=== PATIENT | male | born 1935 | race Caucasian/White ===

== ENCOUNTER 2016-12-26 13:36 | Emergency (ER) | payer MEDICARE, OTHER ==
--- NOTE | 2016-12-26 13:43 | Emergency Department Record ---
History of Present Illness - General Chief Complaint: Syncope Stated Complaint: DIZZY AND SYNCOPE Time Seen by Provider: 12/26/16 13:43 Source: Patient, Family - History of Present Illness Initial Comments: The patient states he had bent over and suddenly found himself on his knees on the floor. He denies any LOC, cp, daly, nausea, sweating, palpitations or other symptoms prior to falling down. His family heard the fall from the next room and found him on his knees. He has a long smoking history but quit in l9 due to a bad pneumonia. He also has htn, and has been having dizzy spells when he bends over for the past several months since July 2016. He denies CVA, NE, PE, DVT. He has COPD and pneumonia in the past. He also had a SBO in August in [place]. Complaint: Almost passed out, Collapsed - Related Data Home Medications Medication Instructions Recorded Confirmed Last Taken Aspirin 81 mg PO DAILY 12/26/16 12/26/16 1 Day Ago ~12/25/16 Lisinopril [Zestril] 5 mg PO DAILY 12/26/16 12/26/16 1 Day Ago ~12/25/16 Multivitamin [Multiple Vitamins] 1 each PO DAILY 12/26/16 12/26/16 1 Day Ago ~12/25/16 Previous Rx's Medication Instructions Recorded Azithromycin [Zithromax] 500 mg PO DAILY #10 tablet 12/26/16 Meclizine HCl [Antivert] 25 mg PO Q8H #30 tablet 12/26/16 Allergies Allergy/AdvReac Type Severity Reaction Status Date / Time No Known Drug Allergies Allergy Verified 12/26/16 13:48 Review of Systems Reviewed: No additional complaints except as noted below Constitutional: Reports: As per HPI. Denies: Chills, Fever, Malaise, Night sweats, Weakness, Weight change Eyes: Reports: As per HPI. Denies: Eye discharge, Eye pain, Photophobia, Vision change ENT: Reports: As per HPI. Denies: Congestion, Dental pain, Ear pain, Epistaxis , Hearing loss, Throat pain Respiratory: Reports: As per HPI. Denies: Cough, Dyspnea, Hemoptysis, Stridor, Wheezes Cardiovascular: Reports: As per HPI. Denies: Arrhythmia, Chest pain, Dyspnea on exertion, Edema, Murmurs, Orthopnea, Palpitations, Paroxysmal nocturnal dyspnea, Rheumatic Fever, Syncope Endocrine: Reports: As per HPI. Denies: Fatigue, Heat or cold intolerance, Polydipsia, Polyuria Gastrointestinal: Reports: As per HPI. Denies: Abdominal pain, Constipation, Diarrhea, Hematemesis, Hematochezia, Melena, Nausea, Vomiting Genitourinary: Reports: As per HPI. Denies: Dysuria, Frequency, Hematuria, Incontinence, Retention, Testicular pain, Testicular mass, Urgency Musculoskeletal: Reports: As per HPI. Denies: Arthralgia, Back pain, Gout, Joint swelling, Myalgia, Neck pain Skin: Reports: As per HPI. Denies: Bruising, Change in color, Change in hair/ nails, Lesions, Pruritus, Rash Neurological: Reports: As per HPI. Denies: Abnormal gait, Confusion, Headache, Numbness, Paresthesias, Seizure, Tingling, Tremors, Vertigo, Weakness Psychiatric: Reports: As per HPI. Denies: Anxiety, Auditory hallucinations, Depression, Homicidal thoughts, Suicidal thoughts, Visual hallucinations Hematological/Lymphatic: Reports: As per HPI. Denies: Anemia, Blood Clots, Easy bleeding, Easy bruising, Swollen glands Past Medical History - SOCIAL HISTORY Smoking Status: Former smoker - RESPIRATORY Hx Respiratory Disorders: Yes Hx Pneumonia: Yes - CARDIOVASCULAR Hx Hypertension: Yes - NEURO Hx Dizziness: Yes Physical Exam - General General Appearance: Alert, Oriented x3, Cooperative, No acute distress, Other ( cachectic ) - Head Head exam: Normal inspection - Eye Eye exam: Normal appearance, PERRL Pupils: Normal accommodation - ENT ENT exam: Normal exam, Mucous membranes moist, Normal external ear exam, Normal orophraynx, TM's normal bilaterally Ear exam: Normal external inspection. negative: External canal tenderness Nasal Exam: Normal inspection. negative: Discharge, Sinus tenderness Mouth exam: Normal external inspection, Tongue normal Teeth exam: Normal inspection. negative: Dental caries Throat exam: Normal inspection. negative: Tonsillar erythema, Tonsillar exudate - Neck Neck exam: Normal inspection, Full ROM. negative: Lymphadenopathy, Meningismus , Tenderness - Respiratory Respiratory exam: Decreased breath sounds, Prolonged expiratory. negative: Chest wall tenderness, Rales, Respiratory distress, Wheezes - Cardiovascular Cardiovascular Exam: Regular rate, Normal rhythm, Normal heart sounds - GI/Abdominal GI/Abdominal exam: Soft, Normal bowel sounds. negative: Tenderness - Rectal Rectal exam: Deferred - exam: Deferred - Extremities Extremities exam: Normal inspection, Full ROM, Normal capillary refill. negative: Calf tenderness, Pedal edema, Tenderness - Back Back exam: Reports: Normal inspection, Full ROM. Denies: Muscle spasm, Rash noted, Tenderness - Neurological Neurological exam: Alert, CN II-XII intact, Normal gait, Oriented X3, Reflexes normal. negative: Motor sensory deficit - Psychiatric Psychiatric exam: Normal affect, Normal mood - Skin Skin exam: Dry, Intact, Normal color, Warm Course - Reevaluation(s) Reevaluation #1: The patient confirms that he just gets his symptoms from bending over or moving his head. He had some sinus problems in the past for which he took flonase and claritin. He agrees with the plan to treat him for sinusitis for 3 weeks and then he will follow up with his PCP to get carotid dopplers through his PCP in [place]. 12/26/16 15:19 Medical Decision Making - Management Options MDM Management: No Additional Work-up Planned (PCP dopplers in home state [facility]) - Data Complexity MDM Data: Labs Ordered and/or Reviewed, X-Ray Ordered and/or Reviewed (CXR two view: COPD changes, no acute abnormality. Noncontrast Head CT: No acute abnormality. Probably sterile fluid in bilateral mastoid air cells; chronic left left maxillary sinus. Per radiologist.), EKG Ordered and/or Reviewed - Lab Data Result diagrams: 12/26/16 13:50 12/26/16 13:50 - EKG Data -: EKG Interpreted by Me (NSR, peaked T waves V leads 1-5, suspicious ST 1mm anterior lead elevation ) Disposition Disposition: Discharge Clinical Impression: Dizziness Sinusitis, chronic Qualifiers: Sinusitis location: maxillary Qualified Code(s): J32.0 - Chronic maxillary sinusitis Disposition: Home, Self-Care Condition: (1) Good Instructions: Sinusitis (ED), Vertigo (ED) Additional Instructions: Take antibiotics as instructed for 3 weeks. Take antivert as instructed to help with dizziness. Follow up with PCP 01-07-17 in [place] as previously arranged for recheck and for out patient carotid doppler studies. Prescriptions: Azithromycin [Zithromax] 500 mg PO DAILY #10 tablet Meclizine HCl [Antivert] 25 mg PO Q8H #30 tablet Forms: Patient Portal Access
[2016-12-26 13:56] LABS: BASO % 0.5 % (0-6); EOS % 2.1 % (0-6); GRAN % 58.1 % (47-80); HEMOGLOBIN 13.7 gm/dl (14.0-18.0); LYMPH % 30.6 % (16-45); MEAN CELL VOLUME 91.1 fl (81-97); MEAN CORPUSCULAR HEMOGLOBIN 30.4 pg (27-33); MEAN CORPUSCULAR HGB CONC 33.4 g/dl (32-36); MEAN PLATELET VOLUME 8.8 fl (7.4-10.4); MONO % 8.7 % (0-9); PLATELET COUNT 208 K/uL (130-400); WHITE BLOOD COUNT W/O DIFF 7.6 K/uL (4.2-12.2)
[2016-12-26 14:06] LABS: LACTIC ACID 1.2 mmol/L (0.7-2.1)
[2016-12-26 14:09] LABS: D-DIMER < 0.19 mg/L FEU (0-0.59); INR 1.06
[2016-12-26 14:19] LABS: BLOOD UREA NITROGEN 13 mg/dL (9-20); CREATININE 0.8 mg/dL (0.66-1.25); EST GLOMERULAR FILTRATION RATE > 60 ml/min; GLUCOSE,RANDOM 113 mg/dL (70-110)
[2016-12-26 14:20] LABS: ALBUMIN 3.9 gm/dL (3.5-5.0); ALKALINE PHOSPHATASE 80 U/L (38-126); ALT/SGPT 25 U/L (21-72); AST/SGOT 21 U/L (17-59); CKMB 0.9 ug/L (0-6); TOTAL PROTEIN 6.8 gm/dL (6.3-8.2); TROPONIN I < 0.012 ng/mL (0.00-0.034)
[2016-12-26 14:58] LABS: URINE APPEARANCE CLEAR; URINE BILIRUBIN NEGATIVE (NEGATIVE); URINE BLOOD NEGATIVE (NEGATIVE); URINE COLOR YELLOW; URINE GLUCOSE (UA) NEGATIVE (NEGATIVE); URINE KETONE NEGATIVE (NEGATIVE); URINE LEUKOCYTE ESTERASE NEGATIVE (NEGATIVE); URINE NITRITE NEGATIVE (NEGATIVE); URINE PROTEIN NEGATIVE (NEGATIVE); URINE UROBILINOGEN 0.2 E.U./dL (0.20 - 1.00)
--- NOTE | 2016-12-29 13:18 | RADIOLOGY REPORT ---
EXAM: CHEST, TWO VIEWS HISTORY: ACUTE SYNCOPE WHILE BENDING OVER. TECHNIQUE: Two views of the chest were obtained. Comparison: None. Encounter: Initial. FINDINGS: Mild biapical pleural thickening consistent with scarring. Upper lung lucency consistent with emphysema. No consolidative change. The cardiac silhouette and diaphragm are unremarkable. Osteopenia. No displaced rib fractures.. IMPRESSION: EMPHYSEMA WITH BIAPICAL SCARRING. NO ACUTE INTRATHORACIC PROCESS. JOB NUMBER: [id number] MTDD
--- NOTE | 2016-12-29 13:52 | CT SCAN REPORT ---
EXAM: HEAD CT WITHOUT CONTRAST HISTORY: SYNCOPE, DID NOT HIT HEAD. TECHNIQUE: Contiguous axial images from the cerebral convexities to the foramen magnum were obtained without contrast. Comparison: None. Hand dominance: Right. Encounter: Initial. FINDINGS: The brain volume is normal. No acute intracranial hemorrhage, mass effect, or midline shift. No CT evidence of acute infarct. The ventricles, basal cisterns, and sulci are within normal limits. Fluid in the mastoid air cells, left greater than right. Extensive mucosal thickening left maxillary sinus. Bilateral lens implants. IMPRESSION: 1. NO ACUTE INTRACRANIAL PROCESS. 2. CHRONIC LEFT MAXILLARY SINUSITIS. 3. PROBABLE TRAPPED STERILE FLUID IN THE MASTOID AIR CELLS. JOB NUMBER: [id number] MTDD
== END 2016-12-26 15:49 | disposition home or self-care (01) ==
LOC: ER 13:36
DX: R42 Dizziness and giddiness (principal); J32.0 Chronic maxillary sinusitis; J44.9 Chronic obstructive pulmonary disease, unspecified
CPT/HCPCS: 70450; 71020; 80048; 80076; 81003; 82553; 83605; 84484; 85025; 85379; 85610; 85730; 93005; 93010; 99283

== ENCOUNTER 2018-02-21 09:09 | Emergency (ER) | payer MEDICARE, OTHER ==
--- NOTE | 2018-02-21 09:50 | Emergency Department Record ---
History of Present Illness - General Chief Complaint: Syncope Stated Complaint: LOW BLOOD PRESSURE Time Seen by Provider: 02/21/18 09:31 Source: Patient, RN notes reviewed Mode of Arrival: Ambulatory - History of Present Illness Initial Comments: syncope three times and he was talking immediately. History of parkinson and he has been having problems with falling for about one year . Patient has a poor appetite and they are giving him food suplements one can a day and are encouraging him to drink fluids. is his historian. daughter also in the room. Some short term memory issues. patient is taking carbi/levo four times a day Onset/Timin -: Days(s) Prodromal Symptoms: Lightheaded Injuries Sustained Associated with Event: None Current Symptoms: None Treatments Prior to Arrival: None - [place] Coma Scale Eye Response: (4) Open spontaneously Motor Response: (6) Obeys commands Verbal Response: (5) Oriented Kelly Total: 15 - Related Data Home Medications Medication Instructions Recorded Confirmed Last Taken Carbidopa/Levodopa [Carbidopa-Levo 1 each PO Q6HR 02/21/18 02/21/18 02/21/18 10-100 mg Odt] Allergies Allergy/AdvReac Type Severity Reaction Status Date / Time No Known Drug Allergies Allergy Verified 02/21/18 09:14 Travel Screening - Travel/Exposure Within Last 30 Days Have you traveled within the last 30 days?: No Review of Systems Reviewed: No additional complaints except as noted below Constitutional: Reports: As per HPI. Denies: Chills, Fever, Malaise, Night sweats, Weakness, Weight change Eyes: Reports: As per HPI. Denies: Eye discharge, Eye pain, Photophobia, Vision change ENT: Reports: As per HPI. Denies: Congestion, Dental pain, Ear pain, Epistaxis , Hearing loss, Throat pain Respiratory: Reports: As per HPI. Denies: Cough, Dyspnea, Hemoptysis, Stridor, Wheezes Cardiovascular: Reports: As per HPI. Denies: Arrhythmia, Chest pain, Dyspnea on exertion, Edema, Murmurs, Orthopnea, Palpitations, Paroxysmal nocturnal dyspnea, Rheumatic Fever, Syncope Endocrine: Reports: As per HPI. Denies: Fatigue, Heat or cold intolerance, Polydipsia, Polyuria Gastrointestinal: Reports: As per HPI. Denies: Abdominal pain, Constipation, Diarrhea, Hematemesis, Hematochezia, Melena, Nausea, Vomiting Genitourinary: Reports: As per HPI. Denies: Dysuria, Frequency, Hematuria, Incontinence, Retention, Testicular pain, Testicular mass, Urgency Musculoskeletal: Reports: As per HPI. Denies: Arthralgia, Back pain, Gout, Joint swelling, Myalgia, Neck pain Skin: Reports: As per HPI. Denies: Bruising, Change in color, Change in hair/ nails, Lesions, Pruritus, Rash Neurological: Reports: As per HPI. Denies: Abnormal gait, Confusion, Headache, Numbness, Paresthesias, Seizure, Tingling, Tremors, Vertigo, Weakness Psychiatric: Reports: As per HPI. Denies: Anxiety, Auditory hallucinations, Depression, Homicidal thoughts, Suicidal thoughts, Visual hallucinations Hematological/Lymphatic: Reports: As per HPI. Denies: Anemia, Blood Clots, Easy bleeding, Easy bruising, Swollen glands Past Medical History - SOCIAL HISTORY Smoking Status: Former smoker Alcohol Use: Occasional Alcohol Use Comment: 1 beer a day Drug Use: None - RESPIRATORY Hx Respiratory Disorders: Yes Hx Pneumonia: Yes - CARDIOVASCULAR Hx Cardio Disorders: No - NEURO Hx Neuro Disorders: Yes Hx Dizziness: Yes Hx Parkinson's Disease: Yes - GI Hx GI Disorders: Yes Comment:: partial SBO 08/2016 - Hx Genitourinary Disorders: Yes Hx Prostate Problems: Yes Comment:: urine frequency - ENDOCRINE Hx Endocrine Disorders: No Hx Diabetes: No Hx Thyroid Disease: No - MUSCULOSKELETAL Hx Musculoskeletal Disorders: Yes - PSYCH Hx Psych Problems: No - HEMATOLOGY/ONCOLOGY Hx Hematology/Oncology Disorders: Yes Hx Cancer: Yes (prostate 2002) Family Medical History Any Significant Family History?: Yes Hx Diabetes: Mother Hx Heart Disease: Father, Mother *Heart Comment: thickening of carotid arteries Physical Exam - General General Appearance: Alert, Oriented x3, Cooperative, No acute distress - Head Head exam: Normal inspection - Eye Eye exam: Normal appearance, PERRL Pupils: Normal accommodation - ENT ENT exam: Normal exam, Mucous membranes moist, Normal external ear exam, Normal orophraynx, TM's normal bilaterally Ear exam: Normal external inspection. negative: External canal tenderness Nasal Exam: Normal inspection. negative: Discharge, Sinus tenderness Mouth exam: Normal external inspection, Tongue normal Teeth exam: Normal inspection. negative: Dental caries Throat exam: Normal inspection. negative: Tonsillar erythema, Tonsillar exudate - Neck Neck exam: Normal inspection, Full ROM. negative: Tenderness - Respiratory Respiratory exam: Normal lung sounds bilaterally. negative: Respiratory distress - Cardiovascular Cardiovascular Exam: Regular rate, Normal rhythm, Normal heart sounds - GI/Abdominal GI/Abdominal exam: Soft, Normal bowel sounds. negative: Tenderness - Rectal Rectal exam: Deferred - exam: Deferred - Extremities Extremities exam: Normal inspection, Full ROM, Normal capillary refill. negative: Tenderness - Back Back exam: Reports: Normal inspection, Full ROM. Denies: Muscle spasm, Rash noted, Tenderness - Neurological Neurological exam: Alert, Normal gait, Oriented X3, Reflexes normal - Psychiatric Psychiatric exam: Normal affect, Normal mood - Skin Skin exam: Dry, Intact, Normal color, Warm Course Vital Signs 02/21/18 09:18 Temperature 97.7 F Pulse Rate 87 Respiratory 20 Rate Blood Pressure 162/85 Pulse Ox 95 - Reevaluation(s) Reevaluation #1: orthostatic hypotension when he stands up. 02/21/18 12:11 Reevaluation #2: concerned orthostatic hypotension is worse because of the carbi/levo and so will decrease to three times a day. 02/21/18 12:25 Medical Decision Making - Data Complexity MDM Data: X-Ray Ordered and/or Reviewed, EKG Ordered and/or Reviewed (NSR , No acute changes and similiar to EKG from December 2015) - Lab Data Result diagrams: 02/21/18 09:25 02/21/18 09:25 Disposition Clinical Impression: Dehydration, Orthostatic hypotension due to Parkinson's disease Disposition: Home, Self-Care Condition: (1) Good Instructions: Dehydration (ED), Syncope (ED) Additional Instructions: decrease his carbi/levo to three times a day Forms: Patient Portal Access Time of Disposition: 12:26 Quality - Quality Measures Quality Measures: N/A - Blood Pressure Screening Does Patient Have Any of the Following: No Blood Pressure Classification: Pre-Hypertensive BP Reading Systolic Measurement: 162 Diastolic Measurement: 85 Screening for High Blood Pressure: < Pre-Hypertensive BP, F/U Documented > [ [id number]] Pre-Hypertensive Follow-up Interventions: Referral to alternative/primary care provider.
[2018-02-21] MEDS ORDERED: 0.9 % SODIUM CHLORIDE 1,000 ML BAG IV ONE (10:00)
[2018-02-21] MEDS ORDERED: 0.9 % SODIUM CHLORIDE 1000ML 1,000 ML IV ONE (10:01)
[2018-02-21 10:08] LABS: BASO % 0.4 % (0-6); EOS % 3.9 % (0-6); GRAN % 52.5 % (47-80); HEMATOCRIT 46.7 % (42.0-52.0); HEMOGLOBIN 14.6 gm/dl (14.0-18.0); LYMPH % 33.3 % (16-45); MEAN CELL VOLUME 95.7 fl (81-97); MEAN CORPUSCULAR HEMOGLOBIN 29.9 pg (27-33); MEAN CORPUSCULAR HGB CONC 31.3 g/dl (32-36); MEAN PLATELET VOLUME 9.9 fl (7.4-10.4); MONO % 9.9 % (0-9); PLATELET COUNT 177 K/uL (130-400); RED BLOOD COUNT 4.88 M/uL (4.40-5.70); RED CELL DISTRIBUTION WIDTH 13.7 % (11.5-14.5); WHITE BLOOD COUNT W/O DIFF 6.9 K/uL (4.2-12.2)
[2018-02-21 10:17] LABS: BLOOD UREA NITROGEN 17 mg/dL (8-23); CREATININE 0.9 mg/dL (0.7-1.2); EST GLOMERULAR FILTRATION RATE > 60 mL/min
[2018-02-21 10:18] LABS: TOTAL PROTEIN 6.7 g/dL (6.6-8.7)
[2018-02-21 10:20] LABS: GLUCOSE,RANDOM 149 mg/dL (74-109)
[2018-02-21 10:23] LABS: ALBUMIN 4.1 g/dL (4.0-5.0); ALKALINE PHOSPHATASE 70 U/L (40-129); ALT/SGPT < 5 U/L (<41); AST/SGOT 22 U/L (10.0-50.0)
[2018-02-21 10:26] LABS: ACETAMINOPHEN < 5.0 ug/mL (10.0-30.0); BILIRUBIN,DIRECT < 0.2 mg/dL (0-0.3)
[2018-02-21 11:29] LABS: URINE APPEARANCE SL CLOUDY; URINE BILIRUBIN NEGATIVE (NEGATIVE); URINE BLOOD NEGATIVE (NEGATIVE); URINE COLOR YELLOW; URINE GLUCOSE (UA) NEGATIVE (NEGATIVE); URINE KETONE NEGATIVE (NEGATIVE); URINE LEUKOCYTE ESTERASE NEGATIVE (NEGATIVE); URINE NITRITE NEGATIVE (NEGATIVE); URINE PROTEIN NEGATIVE (NEGATIVE); URINE UROBILINOGEN 0.2 E.U./dL (0.20 - 1.00)
== END 2018-02-21 13:05 | disposition home or self-care (01) ==
LOC: ER 09:09
DX: E86.0 Dehydration (principal); G20 Parkinson's disease; I95.9 Hypotension, unspecified; Z87.891 Personal history of nicotine dependence
CPT/HCPCS: 99284 ×2; 96360; 96361; 85025; 80076; 80048; 81003; 93005; 93010; G0480 ×2; 80320; 80329; J7030